=== PATIENT | female | born 1985 | race Caucasian/White ===

== ENCOUNTER 2018-06-11 22:15 | Emergency (ER) | payer SELFPAY ==
[~2018-06-11] VITALS: Ht 165.1 cm; Wt 68.0 kg
[2018-06-11 22:41] VITALS: Ht 165.1 cm; Wt 68.0 kg
[2018-06-12 00:30] VITALS: BP 132/83
== END 2018-06-12 00:30 | disposition home or self-care (01) ==
LOC: ED 22:15
DX: O26.891 Other specified pregnancy related conditions, first trimester (principal); H60.91 Unspecified otitis externa, right ear; Z90.49 Acquired absence of other specified parts of digestive tract; Z3A.14 14 weeks gestation of pregnancy